=== PATIENT | female | born 1960 | race Caucasian/White ===

== ENCOUNTER 2021-06-15 14:11 | Emergency (ER) | payer SELFPAY ==
[~2021-06-15] VITALS: Ht 167.6 cm; Wt 73.5 kg
[2021-06-15 14:11] VITALS: BP_SYST 153
[2021-06-15 15:14] VITALS: BP_SYST 185
== END 2021-06-15 15:10 | disposition home or self-care (01) ==
LOC: SED 14:11
DX: R00.2 Palpitations (principal); R00.0 Tachycardia, unspecified; I10 Essential (primary) hypertension; Z88.5 Allergy status to narcotic agent
CPT/HCPCS: 93005; 99283